=== PATIENT | female | born 1955 | race African-American/Black ===

== ENCOUNTER → 2016-09-17 | Outpatient (CLI) | payer BC ==
[~2016-09-17] MED LIST: ALBUTEROL17 GM INH; HYDROCHLOROTHIA25 MG PO; NORVASC10 MG PO
--- NOTE | ~2016-09-17 | MY11 ---
[facility] A Service [facility] RADIOLOGY TEXT RESULTS PATIENT: MARC BRUMFIELD LOCATION: [facility] : 51 UNIT #: [id number] AGE: [address]: Cherelle Lorenzo MD SEX: F ORDER DR: [id number] [facility]. [place], [place] [address] [id number] O MR#: [id number] Acc #: [id number] NAME: MARC BRUMFIELD : 1955 SEX: F STUDY DATE/TIME: 09/17/2016 10:49 UNIT: [facility] ROOM: STUDY DESCRIPTION: MY Mammogram Screening Dig Frank Attending Physician: Cherelle Lorenzo M.D. Referring Physician: Cherelle Lorenzo M.D. Ordering Physician: Cherelle Lorenzo M.D. Primary Care Physician: Cherelle Lorenzo M.D. MEDICAL IMAGING REPORT This report is preliminary unless electronic signature is present EXAM Digital screening mammogram, 09/17/2016 HISTORY 61-year-old woman no risk elevation. Annual screening. COMPARISON Mammograms date to 07/26/2008 with most recent 03/24/2015. FINDINGS Digital imaging of each breast was completed utilizing a two-view examination of each breast in craniocaudal and mediolateral-oblique projections. Review and interpretation of digital mammograms include a second review in conjunction with FDA-approved CAD device. There is a normal parenchymal presentation bilaterally consistent with the patient's age. There are no breast masses imaged and no parenchymal asymmetry is visualized. There are no suspicious microcalcifications and I see no focal architectural disturbance. IMPRESSION Negative screening digital mammogram. One-year followup recommended. Patients over the age of 40 are entered into a reminder system with target due date for the next mammogram. A result letter will also be sent to the patient. BIRADS: 1 Negative ADDENDUM Breast parenchyma is predominantly fatty replaced. Dictated by... Gopi Hernandez M.D. [facility] A Service [facility] RADIOLOGY TEXT RESULTS PATIENT: MARC BRUMFIELD LOCATION: [facility] : 51 UNIT #: [id number] AGE: [address]: Cherelle Lorenzo MD SEX: F ORDER DR: THIS IS AN ELECTRONICALLY VERIFIED REPORT Gopi Hernandez M.D. at 09/17/2016 3:09 PM Boris TD: 09/17/2016 14:38 JOB #: [id number] MEDICAL IMAGING REPORT Page 1 of 1 COPY
== END | disposition home or self-care (01) ==
LOC: CWCC 10:27
DX: Z12.31 Encounter for screening mammogram for malignant neoplasm of breast (principal); R92.8 Other abnormal and inconclusive findings on diagnostic imaging of breast
CPT/HCPCS: G0202